=== PATIENT | female | born 2000 | race Caucasian/White ===

== ENCOUNTER → 2022-02-24 10:52 | Outpatient (CLI) | payer BC, SELFPAY ==
--- NOTE | ~2022-02-24 | XR_ITS ---
XR chest 1V DATE: 02/24/2022 11:05 INDICATION: Screening for respiratory tuberculosis TECHNIQUE: 1 view, 2 radiographs COMPARISON: None FINDINGS: Normal heart size. No hilar or mediastinal enlargement. No pulmonary infiltrate or consol idation, pulmonary vascular congestion or pleural effusion or pneumothorax. IMPRESSION: No active cardiopulmonary disease Reviewed, dictated and finalized at location B.
== END ==
PROVIDERS: PCP Nurse Practitioner Family; Visit Provider Nurse Practitioner Family
DX: Z11.1 Encounter for screening for respiratory tuberculosis (principal)
CPT/HCPCS: 71045

== ENCOUNTER 2022-03-08 18:10 | Emergency (ER) | payer BC, SELFPAY ==
--- NOTE | ~2022-03-08 | XR_ITS ---
EXAMINATION: XR chest 2V Exam Date/Time: 03/08/2022 18:22 CDT HISTORY: hx bronchitis, rt lung crackles Comparison: 02/24/2022. RESULT: Lines, tubes, and devices: None. Lungs and pleura: Clear. Cardiomediastinal silhouette: Stable. Other: No acute osseous or upper abdominal finding. IMPRESSION: No acute cardiopulmonary process. Reviewed, dictated and finalized at location K.
--- NOTE | 2022-03-08 18:19 | ED.URI ---
HPI - URI/Sore Throat General Chief Complaint: Upper Respiratory Infection Stated Complaint: CHEST PAIN Time Seen by Provider: 03/08/22 18:19 Source: patient and RN notes reviewed Mode of arrival: ambulatory Limitations: no limitations History of Present Illness HPI Narrative: 21-year-old female presents concern for chest pressure. She reports she was treated for bronchitis recently, she just finished steroids and Z-Kishore. Reports while she was taking this medication she felt better, her symptoms returned today. She denies any exacerbating factors. She reports when she takes a deep breath the pain is eased. She reports pain in her left shoulder going down her left arm. Shedenies any exertional worsening of chest pain, any diaphoresis, fever, body aches, chills, sweats. She denies any control use, recent fpc immobilization MD elicited complaint: cough and other (Chest pain) Related Data Home Medications Medication Instructions Recorded Confirmed No Home Medications 02/24/22 02/24/22 Allergies Allergy/AdvReac Type Severity Reaction Status Date / Time No Known Allergies Allergy Unknown Verified 02/24/22 10:20 Review of Systems Review of Systems: CONSTITUTIONAL: Denies malaise, chills, sweats, or fever. EYES: Denies visual changes, redness, or discharge. ENT: Reports rhinorrhea, congestion, sinus pain, otalgia and sore throat. CARDIOVASCULAR: Denies chest pain, palpitations, or edema. RESPIRATORY: Reports cough. Denies dyspnea. GASTROINTESTINAL: Denies abdominal pain, nausea, vomiting, diarrhea SKIN: Denies rash or itching. MUSCULOSKELETAL: Denies myalgia. NEUROLOGIC: Denies headache. All systems reviewed & are unremarkable except as noted in HPI and below PMFSH Past Medical History Medical History (Updated 03/08/22 @ 19:39 by Alyssia Hubbard NP) Encounter to establish care Knee pain, bilateral Screening-pulmonary TB Social History Social History (Updated 02/24/22 @ 10:24 by Tricia Suarez Jose) Smoking status: Never smoker Alcohol intake: current Alcohol use details: socially Substance use: never Comments At time of signature, agree with nursing past medical, surgical, social and family history. There is no relevant family history pertinent to the presenting complaint Exam Narrative: GENERAL: Well-appearing, well-nourished, and in no acute distress. HEAD: Normocephalic EYES: PERRLA, conjunctivae clear ENT: Nares clear, turbinates edematous and erythematous, clear discharge. Mucous membranes moist. TM pearly pierce with dull light reflex bilaterally; no tragal tenderness. Oropharynx not erythematous without lesions. Tonsils not enlarged and without exudate, no drooling, no hoarseness, no trismus, uvula midline. NECK: Supple. No lymphadenopathy CHEST: Clear to auscultation, breath sounds equal. No wheezing, rhonchi, rales, or stridor. No respiratory distress, speaks in full sentences. HEART: Regular rate and rhythm. No murmur heard. SKIN: Warm, dry, no rash. NEURO: Alert and oriented x3. PSYCH: Normal mood and affect Course Course Emergency Course: Patient is aware of, understands and agrees to be transferred to the emergency department. Patient agrees to proceed directly to the emergency department. Portions of this record may have been created with voice recognition software Level of Care: Express Care Visit Vital Signs Vital signs: Reviewed. Transfer Transfered to: [facility] Transportation: Other (Private vehicle) Transfer rationale: Chest pain Accepting physician: Chrissy Trejo MDM - URI/Sore Throat MDM Narrative Medical decision making narrative: Exam findings and EKG warrant further evaluation emergency department; patient is non-toxic appearing and is in no distress. Patient is appropriate for transfer via private vehicle Lab Data Attestation: I reviewed the patient's lab results. Imaging Data Radiologist's impression: EXAMINATION:? XR chest 2V Exam Pal
[2022-03-08 18:20] VITALS: BP 137/85; PULSE 123; RESP 20; TEMP 36.6; O2SAT 99
[2022-03-08 18:21] VITALS: BP 137/85; PULSE 123; RESP 20; TEMP 36.6; O2SAT 99
== END 2022-03-08 19:47 | disposition short-term general hospital (02) ==
PROVIDERS: Emergency Provider Nurse Practitioner; PCP Nurse Practitioner Family
DX: R07.9 Chest pain, unspecified (principal)
CPT/HCPCS: 71046; 93005; 99213; G0463

== ENCOUNTER 2022-03-08 20:14 | Emergency (ER) | payer BC, SELFPAY ==
[2022-03-08] VITALS (11 sets, daily range): BP systolic 121–136; BP diastolic 73–85; PULSE 79–98; RESP 16–19; TEMP 36.7; O2SAT 97–99
--- NOTE | 2022-03-08 20:43 | ECG_ITS ---
Measurements Intervals Bailey Rate: 93 P: 46 DE: 159 QRS: 29 QRSD: 75 T: 39 QT: 330 QTc: 412 Interpretive Statements SINUS RHYTHM NORMAL ELECTROCARDIOGRAM NO PREVIOUS ECG AVAILABLE FOR COMPARISON Electronically Signed On 03-09-2022 14:41:38 CDT by Valerio Lee M.D.
[2022-03-08 21:22] LABS: Basophils Absolute Auto 0.1 K/mm3 (0.0-0.1); Basophils Percent Auto 0.3 % (0.2-1.2); Eosinophils Absolute Auto 0.1 K/mm3 (0-0.3); Eosinophils Percent Auto 0.9 % (0-4.4); Hemoglobin 15.4 g/dL (12.0-15.0); Immature Granulocyte Absolute 0.05 K/mm3 (0.00-0.031); Immature Granulocyte Percent A 0.3 % (0-0.5); Lymphocytes Absolute Auto 2.34 K/mm3 (0.9-3.2); Lymphocytes Percent Auto 14.7 % (18.3-44.2); Mean Corpuscular HGB Conc 34.2 g/dl (32-36); Mean Corpuscular Hemoglobin 30.4 pg (26-34); Mean Corpuscular Volume 88.9 fl (80-100); Mean Platelet Volume 8.8 fl (7.4-10.4); Monocytes Absolute Auto 1.2 K/mm3 (0.1-0.6); Monocytes Percent Auto 7.6 % (2.6-8.5); Neutrophils Absolute Auto 12.1 K/mm3 (1.3-6.7); Neutrophils Percent Auto 76.2 % (45.5-73.1); Platelet Count Result 229 k/mm3 (150-375); Red Blood Count 5.06 M/mm3 (4.2-5.4); Red Cell Distribution Width 12.5 % (11.5-14.5); White Blood Count 15.9 K/mm3 (4.5-10.0)
[2022-03-08 21:33] LABS: INR 1.1; Prothrombin Time 13.4 Seconds (11.1-14.7)
[2022-03-08 21:38] LABS: Alanine Aminotransferase 19 U/L (6-35); Albumin Level 4.8 g/dL (3.5-5.1); Alkaline Phosphatase 82 U/L (38-126); Anion Gap 10 mmol/L (8-16); Aspartate Amino Transferase 29 U/L (14-36); Bilirubin,Total 1.3 mg/dL (0.2-1.3); Blood Urea Nitrogen 10 mg/dL (7-17); Calcium 9.1 mg/dL (8.4-10.2); Carbon Dioxide 26 mmol/L (22-30); Chloride 103 mmol/L (98-107); Estimated CRCL calculation 114 ml/min; Estimated Glomerular Filt Rate > 60; Glucose 97 mg/dL (65-110); Lipase 77 U/L (23-300); Potassium 3.7 mmol/L (3.4-5.0); Sodium 139 mmol/L (137-145)
[2022-03-08 21:48] LABS: Troponin I < 0.012 ng/mL (0.000-0.034)
[2022-03-08] MEDS: ASPIRIN 81 MG CHEWABLE TABLET 324 MG PO (21:48)
--- NOTE | 2022-03-08 22:49 | ED.CHESTPAIN ---
HPI - Chest Pain General Chief Complaint: Chest Pain <TRAM Bethea Last Filed: 03/09/22 01:15> Stated Complaint: chest pain <TRAM Bethea Last Filed: 03/09/22 01:15> Time Seen by Provider: 03/08/22 21:49 <TRAM Bethea Last Filed: 03/09/22 01:15> Source: patient and old records reviewed <TRAM Bethea Last Filed: 03/09/22 01:15> Mode of arrival: ambulatory <TRAM Bethea Last Filed: 03/09/22 01:15> Limitations: no limitations <TRAM Bethea Last Filed: 03/09/22 01:15> History of Present Illness HPI narrative: Patient is a 21-year-old female who presents the ED with report of midsternal chest pain, radiating into her left arm. Patient reports pain began this morning and felt like a brick was sitting on her chest. States pain has been intermittent throughout the day. She has not tried anything for the pain. She also reports recent cough and congestion. She was treated for bronchitis with azithromycin and prednisone last week. She has not been tested for COVID. Denies fever, shortness of breath, nausea, vomiting, abdominal pain, pain with taking deep breath. Patient was sent here from urgent care where she had a negative x-ray. <TRAM Bethea Last Filed: 03/09/22 01:15> Related Data Home Medications: Home Medications Medication Instructions Recorded Confirmed No Home Medications 02/24/22 02/24/22 <TRAM Bethea Last Filed: 03/09/22 01:15> Allergies/Adverse Reactions: Allergies Allergy/AdvReac Type Severity Reaction Status Date / Time No Known Allergies Allergy Unknown Verified 02/24/22 10:20 <TRAM Bethea Last Filed: 03/09/22 01:15> Review of Systems Review of Systems: CONSTITUTIONAL: Denies fever, chills, or sweats. ENT: Reports rhinorrhea, congestion. CARDIOVASCULAR: Reports midsternal chest pain, and to left arm. Denies palpitations, or edema. RESPIRATORY: Reports cough. Denies pleuritic pain or dyspnea. GASTROINTESTINAL: Denies abdominal pain, nausea, vomiting, or diarrhea. <Chrissy Barney PA-C - Last Filed: 03/09/22 01:15> All systems reviewed & are unremarkable except as noted in HPI and below <Chrissy Barney PA-C - Last Filed: 03/09/22 01:15> [facility] Past Medical History Medical History: Medical History (Updated 03/10/22 @ 00:00 by Nahun Hanson) Encounter to establish care Knee pain, bilateral Screening-pulmonary TB <Chrissy Barney PA-C - Last Filed: 03/09/22 01:15> Surgical History Surgical History: Surgical History (Updated 03/09/22 @ 01:12 by Chrissy Barney PA-C) No pertinent past surgical history <Chrissy Barney PA-C - Last Filed: 03/09/22 01:15> Social History Social History: Social History Smoking status: Never smoker Alcohol intake: current Alcohol use details: socially Substance use: never <Chrissy Barney PA-C - Last Filed: 03/09/22 01:15> Exam Narrative: GENERAL: Well appearing, well-nourished, non-toxic, in no acute distress. HEAD: Normocephalic, atraumatic. NECK: Supple. No adenopathy, no masses. RESPIRATORY: Airway patent, respirations nonlabored. Clear to auscultation bilaterally, no rales, rhonchi, wheezing. CARDIOVASCULAR: Regular rate and rhythm without murmurs, rubs, or gallops. Peripheral pulses 2+ and equal bilaterally. ABDOMINAL: Soft, nontender, nondistended, no hepatosplenomegaly. Normoactive BS. MUSCULOSKELETAL: Moves all extremities. Strength/ROM intact without gross deformities or TTP. No edema. No calf tenderness. Tenderness over midsternal anterior chest wall. No pain with movement of left upper extremity. SKIN: Warm, dry, normal color. No rashes. NEURO: A&O X3. Speech clear. Cranial nerves II-XII grossly intact. Steady gait. No ataxic movemen
[2022-03-08 23:33] LABS: D Dimer 0.23 ug/mL (<0.48)
[2022-03-08 23:40] LABS: SARS-CoV-2 RNA PCR Negative
[2022-03-09 00:14] LABS: Troponin I < 0.012 ng/mL (0.000-0.034)
[2022-03-09 00:17] VITALS: BP 116/77; PULSE 76; RESP 15; O2SAT 99
== END 2022-03-09 00:50 | disposition home or self-care (01) ==
PROVIDERS: Physician Assistant; Emergency Provider Emergency Medicine; PCP Nurse Practitioner Family
DX: R07.89 Other chest pain (principal); Z20.822 Contact with and (suspected) exposure to COVID-19
CPT/HCPCS: 36415; 80053; 83690; 84484; 85025; 85380; 85610; 85730; 93005; 99284; A9270; C9803; U0003; U0005